=== PATIENT | female | born 1970 | race Native Hawaiian/Other Pacific Islander ===

== ENCOUNTER 2022-05-20 13:34 | Emergency (ER) | payer OTHER ==
[~2022-05-20] VITALS: Ht 165.1 cm; Wt 98.4 kg
[~2022-05-20 13:34] MED LIST: BUT/APAP/CA1 PO; HYDACET7.5 PO; LISI10TA11 PO; LORA10TA3 PO; METOPROLOL25 M1 OR; TRAM50TA PO
[2022-05-20 13:43] VITALS: BP 120/80; TEMP 98.2
[2022-05-20 15:08] LABS: PLATELET COUNT 191 K/uL (152-353)
== END 2022-05-20 16:06 | disposition home or self-care (01) ==
LOC: ED 13:34
PROVIDERS: Family Medicine
DX: U07.1 COVID-19 (principal); J40 Bronchitis, not specified as acute or chronic; F17.210 Nicotine dependence, cigarettes, uncomplicated
CPT/HCPCS: 36415; 80053; 85027; 87502; 87635; 94664; 99283; U0003